=== PATIENT | female | born 1970 | race Two or more races ===

== ENCOUNTER 2017-07-09 08:39 | Emergency (ER) | payer OTHER ==
[2017-07-09 08:51] VITALS: BP 103/57; PULSE 72; RESP 18; TEMP 98.6; O2SAT 97
--- NOTE | 2017-07-09 08:55 | EDPHY ---
H & P Time Seen by Provider: 07/09/17 08:53 HPI/ROS: CHIEF COMPLAINT: Left burden laceration, contusion HISTORY OF PRESENT ILLNESS: The patient is a 6-year-old female who was at [employer] last evening when she struck her left burden on a flat bed cart. She cleaned out the wound and put antibiotic ointment on it. When she woke this morning she had discomfort. She noticed losing blood. She came to emergency department to have it evaluated. She has mild discomfort with ambulation but it has improved since waking. She has no numbness or tingling. No other injury REVIEW OF SYSTEMS: Negative Past Medical/Surgical History: Includes mitral valve prolapse, allergies, IBS Smoking Status: Never smoked Physical Exam: Vitals noted General Appearance: Alert and no distress. Head: Pupils equal. Normal. Respiratory: No respiratory distress. Cardiac: regular rate and rhythm. Extremities: patient has a 0.5 cm laceration on her left anterior burden. Bleeding is controlled. No palpable foreign body. No bony tenderness to palpation. Patient ambulates without difficulty. Neurovascularly intact distally. Skin: No rashes or lesions. Neuro: Alert. Normal mood and affect. Constitutional: Initial Vital Signs Temperature (C) 37.0 C 07/09/17 08:49 Heart Rate 72 07/09/17 08:49 Respiratory Rate 18 07/09/17 08:49 Blood Pressure 103/57 L 07/09/17 08:49 O2 Sat (%) 97 07/09/17 08:49 O2 Delivery Mode Room Air Allergies/Adverse Reactions: No Known Allergies Allergy (Verified 07/09/17 08:48) Home Medications: Medication Instructions Recorded NK [No Known Home Meds] 07/09/17 Medical Decision Making ED Course/Re-evaluation: I discussed treatment options with the patient. She has a superficial laceration that is small. Bleeding is controlled. It happened greater than 8 hours ago. At this time I do not feel she needs laceration repair. I do not feel she needs delayed closure with the size of her wound. Patient has no significant bony tenderness palpation. I do not feel she needs x-ray imaging. I explained this and answered her questions. Her wound was cleaned and dressed. She is given warnings prior to leaving. Differential Diagnosis: My differential includes but is not limited to laceration, contusion, abrasion, foreign body, fracture Departure - Departure Disposition: Home, Routine, Self-Care Clinical Impression: Laceration of left leg Qualifiers: Encounter type: initial encounter Qualified Code(s): S81.812A - Laceration without foreign body, left lower leg, initial encounter Condition: Good Instructions: Laceration (ED) Additional Instructions: Keep the wound clean and dry. Return with increased redness, swelling, discharge or any other concerns. Referrals: Davina Rodriguez MD [Primary Care Provider] - 5-7 days, if not improved
== END 2017-07-09 09:02 | disposition home or self-care (01) ==
LOC: CED 08:39
DX: S81.812A Laceration without foreign body, left lower leg, initial encounter (principal); W22.8XXA Striking against or struck by other objects, initial encounter